=== PATIENT | female | born 1955 | race Caucasian/White ===

== ENCOUNTER → 2020-06-15 | Outpatient (CLI) | payer BC ==
[~2020-06-15] MED LIST: CARVEDILOL25 MG PO; CHILDREN'S ASPI81 M1 PO; DIOVAN160 MG PO; DULOXETINE HCL60 MG PO; FISH OIL 1,0001 EAC9 PO; JUICE PLUS PO; LATANOPROST 0.2.5 ML OPHTHALMIC; MECLIZINE HCL25 M1 PO; MULTIVITAMINS PO; NEXIUM 40 MG CA40 M1 PO; OSTEO BI-FLEX1 EAC1 PO; PROBIOTIC1 EAC7 PO; SPIRONOLACTONE25 M1 PO; TYLENOL EXTRA500 MG PO; [UNRECOGNIZED DRUG - OTHER] PO
== END ==
LOC: LAB 08:53
PROVIDERS: ATTEND Student in an Organized Health Care Education/Training Program
DX: Z01.812 Encounter for preprocedural laboratory examination (principal); Z20.822 Contact with and (suspected) exposure to COVID-19

== ENCOUNTER 2020-06-20 06:17 | Day surgery (SDC) | payer BC ==
[~2020-06-20] VITALS: Ht 154.9 cm; Wt 99.8 kg
[2020-06-20 07:08] LABS: CALCIUM 9.3 mg/dL (8.5-10.1); CREATININE 0.8 mg/dL (0.6-1.0); POTASSIUM 3.4 mmol/L (3.5-5.1)
[2020-06-20 07:23] VITALS: BP 131/65
[2020-06-20] MEDS ORDERED: PERCOCET 7.5-31 EAC1 PO (09:04)
[2020-06-20] MEDS ORDERED: ASA81BEC PO (09:04)
[2020-06-20 09:29] VITALS: BP 131/65
--- NOTE | 2020-06-21 09:59 | O ---
[facility] [place] [address] OPERATIVE REPORT Name: ADRYAN THOMAS Room #: DEP [facility]#: [id number] Admission: 06/20/20 Attend Phys: Ghanshyam Sears MD Discharge: 06/20/20 Date of : 55 Report #: [id number] THIS REPORT FOR: cc: JOSSELINE - Ruchi family physician/PCP JOSSELINE - No family physician/PCP Ghanshyam Sears MD ~ DATE OF SERVICE: 06/20/2020 PREOPERATIVE DIAGNOSES: 1. Left insertional Achilles tendinitis. 2. Left Delvis's deformity. POSTOPERATIVE DIAGNOSES: 1. Left insertional Achilles tendinitis 2. Left Delvis deformity. PROCEDURES: 1. Left Achilles tendon debridement with detachment and reattachment. 2. Left Delvis's deformity excision. 3. Left flexor hallucis longus tendon transfer. SURGEON: Dr. Ghanshyam Sears. NET REPAIRER: Stacey Joshi. ANESTHESIA: General. ESTIMATED BLOOD LOSS: Minimal. DRAINS: No drains. TOURNIQUET TIME: One hour. DESCRIPTION OF PROCEDURE: The patient brought to the operating room where she was placed under general anesthesia. Once under adequate general anesthesia, she was placed into a prone position on the operative table. The patient's left lower extremity was then prepped and draped in sterile manner. The extremity was elevated, exsanguinated, tourniquet placed 300 mmHg. A posterior incision along the insertion of the Achilles tendon was made. This was dissected to the peritenon, which was then elevated off of the tendon, exposing the tendon insertion. The tendon insertion was then exposed utilizing a 15 blade and a rongeur was used to remove the posterior osteophytes as well as the lateral medial osteophytes at the Achilles tendon insertion. The tendon itself was debrided with a 15 blade of any scar tissue on the anterior surface of the tendon as well as distally. Delvis's deformity was exposed and a sagittal saw [address] [address] OPERATIVE REPORT Name: ADRYAN THOMAS Room #: DEP [facility]#: [id number] Admission: 06/20/20 Attend Phys: Ghanshyam Sears MD Discharge: 06/20/20 Date of : 55 Report #: [id number] was used to resect this along with a rongeur. Dissection was carried to the posterior ankle and the flexor hallucis longus tendon was identified and followed into its fiber osseous tunnel where it was incised and brought posteriorly into the wound. This was then tied with a 2-0 Vicryl suture and a drill hole for the 8 mm Bio-Tenodesis screw was then placed. A Júnior needle was then used to transfer the tendon through the bone with fixation with the Bio-Tenodesis screw. Excellent fixation was achieved. The drill and tap for the Achilles SpeedBridge was then placed and utilized to bring the Achilles tendon back down to the bone. Excellent fixation was achieved in this manner. Once complete, the wound was irrigated copiously and closed with 2-0 Vicryl in the deep and subcutaneous tissues and shyann were used for the skin. The wound was dressed with Xeroform, 4 x 4s, and sterile soft compressive dressing was placed. Tourniquet was let down at approximately 1 hour. Toes were pink and warm with good capillary refill. There were no complications from the procedure. The patient tolerated the procedure well and went to recovery room without incident. <ELECTRONICALLY SIGNED> By: Ghanshyam Sears MD 06/21/20 0959 [id number] [id number] Ghanshyam Sears MD /nt
== END 2020-06-20 11:30 | disposition home or self-care (01) ==
LOC: OR 06:17 → TBA 06:18 → OR 10:10
PROVIDERS: Anesthesiology; ATTEND Orthopaedic Surgery Foot and Ankle Surgery
DX: M76.62 Achilles tendinitis, left leg (principal)
CPT/HCPCS: 50010; 50101; 50386; 50951; 51412; 56524; 56527; 57091; 57180; 58260; 58470; 62110; 62900; 64039; 70005